=== PATIENT | male | born 1960 | race Caucasian/White ===

== ENCOUNTER → 2018-09-01 | Emergency (ER) | payer OTHER ==
[~2018-09-01] VITALS: Ht 165.1 cm; Wt 83.2 kg
[~2018-09-01] MED LIST: OTC COUGH MEDS
[2018-09-01 17:24] VITALS: BP 169/119
== END | disposition home or self-care (01) ==
LOC: EMS 17:11
DX: R20.0 Anesthesia of skin (principal); Z53.21 Procedure and treatment not carried out due to patient leaving prior to being seen by health care provider

== ENCOUNTER 2023-07-26 11:34 | Emergency (ER) | payer OTHER ==
[~2023-07-26] VITALS: Ht 165.1 cm; Wt 77.3 kg
[2023-07-26] MEDS ORDERED: IBUP-1492 PO (13:10)
[2023-07-26] MEDS ORDERED: KETOROLAC TROMETHAMINE 30 MG/ML VIAL IM ONE (13:15)
[2023-07-26 13:21] VITALS: BP 135/82; PULSE 94; RESP 18; TEMP 98
== END 2023-07-26 13:26 | disposition still patient (30) ==
LOC: EMS 11:34
DX: M62.838 Other muscle spasm (principal)
CPT/HCPCS: 99283; 96372; J1885